=== PATIENT | male | born 1940 | race Caucasian/White ===

== ENCOUNTER 2019-04-06 19:18 | Emergency (ER) | payer OTHER ==
[2019-04-06 19:30] VITALS: BP 166/94; PULSE 87; TEMP 98.1; BMI 22.4
--- NOTE | 2019-04-06 19:55 | PDOC ---
History of Present Illness - General Chief Complaint: Hematuria Stated Complaint: BLOOD IN URINE Time Seen by Provider: 04/06/19 19:54 History Source: Patient, Family, Pt declined Bone Char Operator Exam Limitations: Language Barrier - History of Present Illness Initial Comments: History obtained from Son, pt and Son declined interpreter for the deaf. 79-year-old male with past medical history of BPH, hypertension, atrial fibrillation on Eliquis, CABG, presented to the emergency department for painless hematuria beginning today. Patient reported he was recently started on a new medicine by his urologist Dr. Peters, he and his son do not remember the name of the medication. They reported the patient took the first pill at 10 AM and the second pill around 3 PM, and in between that the patient developed painless hematuria. Patient denied fever, abdominal pain, back pain, flank pain , lightheadedness, generalized weakness, nausea, vomiting, diarrhea. Patient reported he has had burning with urination for the last year. ROS General: denied fever, chills, generalized weakness. HEENT: denied sore throat, rhinorrhea, ear pain. Cardiovascular: denied chest pain, palpitations, syncope, diaphoresis. Respiratory: denied shortness of breath, cough, sputum production, hemoptysis. Gastrointestinal: denied abdominal pain, nausea, vomiting, diarrhea, constipation, blood in stool. Genitourinary: admitted to dysuria, hematuria. denied increased urinary frequency, urinary incontinence, flank pain. Back: denied back pain. Musculoskeletal: denied joint pain, muscle pain, joint swelling. Neurological: denied headache, dizziness, numbness, tingling, weakness. Integumentary: denied rash, laceration, abrasion. Hematologic/Lymphatic: denied bruising or bleeding. PE Constitutional: Well-nourished, Well-developed, appearing stated age. HEENT: head is normocephalic, atraumatic. EOMI. PERRLA. Neck: supple. Full ROM. Cardiovascular: regular heart rhythm. no murmurs. no pericardial friction rub. Respiratory: clear to auscultation bilaterally. no crackles, rhonchi or wheezing. no stridor. Gastrointestinal: soft, nontender. normal bowel sounds. no rebound, guarding, masses. Back: negative CVA tenderness bilaterally. Extremities: peripheral pulses intact. no lower extremity edema. Neurological: CN 2-12 grossly intact. moves all four extremities. Psych: awake, alert, oriented x3. follows commands. answers questions appropriately. Past History - Past Medical History Allergies/Adverse Reactions: Allergies Allergy/AdvReac Type Severity Reaction Status Date / Time No Known Allergies Allergy Verified 04/06/19 19:30 Home Medications: Ambulatory Orders Amlodipine Besylate [Norvasc -] 5 mg PO DAILY #30 tablet 04/02/13 Digoxin [Lanoxin -] 0.125 mg PO DAILY 04/02/13 Nadolol [Corgard] 80 mg PO DAILY 04/02/13 Warfarin Sodium [Coumadin] 2.5 mg PO DAILY 04/02/13 Oxycodone HCl/Acetaminophen [Percocet 5-325 mg Tablet] 1 - 2 tab PO Q6H #20 tablet 12/18/13 - Psycho Social/Smoking Cessation Hx Smoking History: Never smoked Substance Use Type: None *Physical Exam - Vital Signs Last Vital Signs Temp Pulse Resp BP Pulse Ox 98.1 F 87 18 166/94 98 04/06/19 19:25 04/06/19 19:25 04/06/19 19:25 04/06/19 19:25 04/06/19 19:25 ED Treatment Course - LABORATORY CBC & Chemistry Diagram: 04/06/19 20:23 04/06/19 20:23 Medical Decision Making - Medical Decision Making 79 year old male with above PMH presented to ED for painless hematuria beginning today. Son will return home to get the medication the patient started taking today. Initial Vital Signs Temp Pulse Resp BP Pulse Ox 98.1 F 87 18 166/94 98 04/06/19 19:25 04/06/19 19:25 04/06/19 19:25 04/06/19 19:25 04/06/19 19:25 Afebrile. No tachycardia. No tachypnea. Hypertensive. No hypoxia on room air. Labs ordered: CBC, CMP, UA/UC, coags Imaging ordered: none Medications ordered: none 04/06/19 21:08 Laboratory Last Values PT with INR 16.20 SEC (9.7-13.0) H 04/06/19 20:23 INR 1.37 (0.83-1.09) H 04/06/19 20:23 PTT (Actin FS) 43.6 SECONDS (25.2-36.5) H 04/06/19 20:23 Mildly elevated coags, no supratherapeutic INR, pt is on Eliquis. Son returned to ED with prescription bottle for Pyridium, son and pt reassured that pyridium causes red/orange urine. 04/06/19 21:16 CMP Sodium 142 mmol/L (136-145) 04/06/19 20:23 Potassium 3.8 mmol/L (3.5-5.1) 04/06/19 20:23 Chloride 112 mmol/L (98-107) H 04/06/19 20:23 Carbon Dioxide 23 mmol/L (21-32) 04/06/19 20:23 Anion Gap 8 MMOL/L (8-16) 04/06/19 20:23 BUN 17.0 mg/dL (7-18) 04/06/19 20:23 Creatinine 1.0 mg/dL (0.55-1.3) 04/06/19 20:23 Est GFR (CKD-EPI)AfAm 83.77 04/06/19 20:23 Est GFR (CKD-EPI)NonAf 72.28 04/06/19 20:23 Random Glucose 71 mg/dL (74-106) L 04/06/19 20:23 Calcium 8.8 mg/dL (8.5-10.1) 04/06/19 20:23 Total Bilirubin 0.5 mg/dL (0.2-1) 04/06/19 20:23 AST 27 U/L (15-37) 04/06/19 20:23 ALT 37 U/L (13-61) 04/06/19 20:23 Alkaline Phosphatase 116 U/L (45-117) 04/06/19 20:23 Total Protein 7.5 g/dl (6.4-8.2) 04/06/19 20:23 Albumin 4.0 g/dl (3.4-5.0) 04/06/19 20:23 No clinically significant electrolyte abnormalities. No DAWSON. No transaminitis. 04/06/19 21:30 CBC WBC 6.5 K/mm3 (4.0-10.0) 04/06/19 20:23 RBC 4.16 M/mm3 (4.00-5.60) 04/06/19 20:23 Hgb 13.1 GM/dL (11.7-16.9) 04/06/19 20:23 Hct 39.2 % (35.4-49) 04/06/19 20: MCV 94.3 fl (80-96) 04/06/19 20: MCH 31.5 pg (25.7-33.7) 04/06/19 20: MCHC 33.4 g/dl (32.0-35.9) 04/06/19 20: RDW 14.7 % (11.9-15.9) 04/06/19: Plt Count 207 K/MM3 (134-434) D 04/06/19 20: MPV 8.0 fl (7.5-11.1) 04/06/19: Absolute Neuts (auto) 4.1 K/mm3 (1.5-8.0) 04/06/19: Neutrophils % 62.4 % (42.8-82.8) 04/06/19: Lymphocytes % 22.9 % (8-40) 04/06/19: Monocytes % 13.2 % (3.8-10.2) H 04/06/19: Eosinophils % 1.1 % (0-4.5) 04/06/19: Basophils % 0.4 % (0-2.0) 04/06/19: Nucleated RBC % 0 % (0-0) 04/06/19: No leukocytosis. No anemia. Pt and son requesting discharge prior to UA results. Will call if abnormal. Pt and son advised to continue pyridium. Pt discharged. 04/06/19 22:13 Urine Test Results Urine Color Dk yellow 04/06/19 21:00 Urine Appearance Clear 04/06/19 21:00 Urine pH 5.5 (5.0-8.0) 04/06/19 21:00 Ur Specific Mcdaniels 1.004 (1.010-1.035) L 04/06/19 21:00 Urine Protein Negative (NEGATIVE) 04/06/19 21:00 Urine Glucose (UA) Negative (NEGATIVE) 04/06/19 21:00 Urine Ketones Negative (NEGATIVE) 04/06/19 21:00 Urine Blood Negative (NEGATIVE) 04/06/19 21:00 Urine Nitrite Positive (NEGATIVE) H 04/06/19 21:00 Urine Bilirubin Negative (NEGATIVE) 04/06/19 21:00 Ur Leukocyte Esterase Negative (NEGATIVE) 04/06/19 21:00 WBC 0 Epithelial cells 0 Bacteria <1 No UTI. No hematuria. Discharge - Discharge Information Problems reviewed: Yes Clinical Impression/Diagnosis: Red-colored urine Condition: Stable Disposition: HOME - Admission No - Follow up/Referral Referrals: Dana Holder [Primary Care Provider] - Nunu Peters MD [Staff Physician] - - Patient Discharge Instructions Additional Instructions: Continue taking the medicatios prescribed to you. Red-Wilbarger urine is a side effect of Pyridium use. It is safe to continue taking it. Return to the Emergency Department for increasing pain, back pain, flank pain, fever, vomiting, abdominal pain, lightheadedness, chest pain, shortness of breath, or any other new, worsening or concerning symptoms. - Post Discharge Activity
[2019-04-06 20:49] LABS: BASO % 0.4 % (0-2.0); EOS % 1.1 % (0-4.5); HEMATOCRIT 39.2 % (35.4-49); HEMOGLOBIN 13.1 GM/dL (11.7-16.9); LYMPH % 22.9 % (8-40); MCH 31.5 pg (25.7-33.7); MCHC 33.4 g/dl (32.0-35.9); MEAN CELL VOLUME 94.3 fl (80-96); MONO % 13.2 % (3.8-10.2); NEUT % 62.4 % (42.8-82.8); PLATELET COUNT 207 K/MM3 (134-434); RBC 4.16 M/mm3 (4.00-5.60); RDW 14.7 % (11.9-15.9); WHITE BLOOD COUNT 6.5 K/mm3 (4.0-10.0)
[2019-04-06 21:02] LABS: INR 1.37 (0.83-1.09); PROTHROMBIN TIME (PATIENT) 16.2 SEC (9.7-13.0)
[2019-04-06 21:04] LABS: ACTIVATED PTT 43.6 SECONDS (25.2-36.5)
[2019-04-06 21:12] LABS: BILIRUBIN,TOTAL 0.5 mg/dL (0.2-1); CALCIUM 8.8 mg/dL (8.5-10.1); POTASSIUM 3.8 mmol/L (3.5-5.1); TOT PROT 7.5 g/dl (6.4-8.2)
--- NOTE | 2019-04-06 21:15 | PDOC ---
Attending Attestation - Resident Resident Name: Veronica Rizo - ED Attending Attestation I have performed the following: I have examined & evaluated the patient, The case was reviewed & discussed with the resident, I agree w/resident's findings & plan - HPI HPI: 04/06/19 21:31 Pt comes with orange urine and they are worried that this is hematuria, as he is on eliquis. However pt is on pyridoxine and as such has orange urine. No flank pain and no fever and no BRB in the urine. - Physicial Exam PE: 04/06/19 21:32 Pt has normal heart and lungs and abd soft NT ND Heart RRR no afib appreciated Pt has no flank pain and no midline spine tenderness Pt has pitting edema of the right leg >> left leg. - Medical Decision Making 04/06/19 21:14 Pt has an INR of 1.37; Pt has a chem that is normal BUN is not elevated CBC pending Vitals are stable. 04/07/19 22:55 Pt will be sent Bactrim DS BID x 7 days FOllow with PMD
[2019-04-06 21:28] LABS: INR 1.36 (0.83-1.09); PROTHROMBIN TIME (PATIENT) 16.1 SEC (9.7-13.0)
[2019-04-06 21:30] LABS: ACTIVATED PTT 44.1 SECONDS (25.2-36.5)
[2019-04-06 21:49] LABS: EPI CELLS 0 /HPF (0-5/HPF); HYALINE CASTS 0 /lpf (0-8); PH,URINE 5.5 (5.0-8.0); URINE APPEARANCE CLEAR; URINE BACTERIA 0.3 /hpf (NEGATIVE); URINE BILIRUBIN NEGATIVE (NEGATIVE); URINE COLOR DK YELLOW; URINE GLUCOSE (UA) NEGATIVE (NEGATIVE); URINE KETONE NEGATIVE (NEGATIVE); URINE LEUK ESTERASE NEGATIVE (NEGATIVE); URINE NITRITE POSITIVE (NEGATIVE); URINE PROTEIN NEGATIVE (NEGATIVE); URINE RBC 0 /hpf (0-4); URINE WBC 0 /hpf (0-5)
== END 2019-04-06 21:49 | disposition home or self-care (01) ==
LOC: JER 19:18
DX: R82.90 Unspecified abnormal findings in urine (principal); I25.10 Atherosclerotic heart disease of native coronary artery without angina pectoris; I10 Essential (primary) hypertension; Z95.1 Presence of aortocoronary bypass graft; I48.91 Unspecified atrial fibrillation; Z79.01 Long term (current) use of anticoagulants; N40.0 Benign prostatic hyperplasia without lower urinary tract symptoms
CPT/HCPCS: 36415; 80053; 81003; 85025; 85610; 85730; 87086; 99282-25

== ENCOUNTER 2021-05-28 08:10 | Inpatient (IN) | payer OTHER ==
[2021-05-28 08:26] VITALS: BMI 23.0
[2021-05-28] MEDS ORDERED: ACETAMINOPHEN 1000 MG/100 ML BAG IVPB ONE (08:53)
[2021-05-28] MEDS ORDERED: ACETAMINOPHEN INJECTION 100 ML IVPB ONE (09:34)
[2021-05-28 10:37] LABS: BASO % 0.4 % (0-2.0); EOS % 0.9 % (0-4.5); HEMATOCRIT 28.5 % (35.4-49); HEMOGLOBIN 9.5 GM/dL (11.7-16.9); LYMPH % 9.3 % (8-40); MCH 29.7 pg (25.7-33.7); MCHC 33.3 g/dl (32.0-35.9); MEAN CELL VOLUME 89.3 fl (80-96); MEAN PLT VOLUME 7.8 fl (7.5-11.1); MONO % 8.5 % (3.8-10.2); NEUT % 80.9 % (42.8-82.8); PLATELET COUNT 287 10^3/uL (134-434); RBC 3.19 M/mm3 (4.00-5.60); RDW 15.7 % (11.9-15.9); WHITE BLOOD COUNT 8.5 K/mm3 (4.0-10.0)
[2021-05-28] MEDS ORDERED: amLODIPine BESYLATE 10 MG TABLET (FP) PO ONE (10:40)
[2021-05-28 10:46] LABS: INR 1.38 (0.83-1.09); PROTHROMBIN TIME (PATIENT) 15.9 SEC (9.7-13.0)
[2021-05-28 10:49] LABS: ACTIVATED PTT 35.2 SECONDS (25.2-36.5)
[2021-05-28] MEDS ORDERED: LIDOCAINE HCL 2% JELLY 10 ML CARTRIDGE ONE (10:53)
[2021-05-28 10:59] LABS: CALCIUM 8.1 mg/dL (8.5-10.1)
[2021-05-28 11:00] LABS: ALBUMIN 3.3 g/dl (3.4-5.0)
[2021-05-28 11:03] LABS: CREATININE 1.1 mg/dL (0.55-1.3); URINE APPEARANCE Turbid; URINE BILIRUBIN Negative (NEGATIVE); URINE GLUCOSE (UA) Negative (NEGATIVE); URINE KETONE Negative (NEGATIVE); URINE LEUK ESTERASE Trace (NEGATIVE); URINE NITRITE Negative (NEGATIVE); URINE PROTEIN 3+ (NEGATIVE)
[2021-05-28 11:04] LABS: BILIRUBIN,TOTAL 1.3 mg/dL (0.2-1)
[2021-05-28 11:05] LABS: TOT PROT 6.9 g/dl (6.4-8.2)
[2021-05-28 11:24] LABS: URINE COLOR Red
[2021-05-28 11:32] LABS: URINE RBC >100 /uL (0-23.9)
[2021-05-28 11:33] LABS: EPI CELLS FEW /uL (0-25.1); HYALINE CASTS NONE SEEN /uL (0-3.1)
[2021-05-28 11:34] LABS: URINE BACTERIA FEW /uL (0-1359)
[2021-05-28] MEDS: ACETAMINOPHEN 500 MG TABLET (FP) PO PRN ×3 (15:47→21:23)
[2021-05-28] MEDS ORDERED: cefTRIAXone SODIUM 1 GM VIAL ONE (16:12)
[2021-05-28] MEDS ORDERED: DEXTROSE 5%-WATER - 50 ML IVPB ONE (16:12)
[2021-05-28] MEDS: CEFTRIAXONE 1 GM in DEXTROSE 5%-WATER - 50 ML IVPB SCH (16:15)
[2021-05-28] MEDS: DEXTROSE 5%-0.45% SALINE 1,000 ML IV SCH (16:21)
[2021-05-29] MEDS: DEXTROSE 5%-0.45% SALINE 1,000 ML IV SCH ×2 (08:34→16:33)
[2021-05-29] MEDS ORDERED: cefTRIAXone SODIUM 1 GM VIAL ONE (09:44)
[2021-05-29] MEDS ORDERED: DEXTROSE 5%-WATER - 50 ML IVPB ONE ×3 (09:44→17:09)
[2021-05-29] MEDS ORDERED: NADOLOL 40 MG TABLET (FP) PO SCH (10:00)
[2021-05-29] MEDS: DIGOXIN 0.125 MG TABLET PO SCH (10:15)
[2021-05-29 10:25] LABS: BASO % 0.5 % (0-2.0); EOS % 0.6 % (0-4.5); HEMATOCRIT 25.1 % (35.4-49); HEMOGLOBIN 8.2 GM/dL (11.7-16.9); LYMPH % 4.3 % (8-40); MCH 29.5 pg (25.7-33.7); MCHC 32.7 g/dl (32.0-35.9); MEAN CELL VOLUME 90.2 fl (80-96); MONO % 6.7 % (3.8-10.2); NEUT % 87.9 % (42.8-82.8); PLATELET COUNT 273 10^3/uL (134-434); RBC 2.79 M/mm3 (4.00-5.60); RDW 16.1 % (11.9-15.9); WHITE BLOOD COUNT 14.5 K/mm3 (4.0-10.0)
[2021-05-29] MEDS: CEFTRIAXONE 1 GM in DEXTROSE 5%-WATER - 50 ML IVPB SCH (10:32)
[2021-05-29] MEDS: amLODIPine BESYLATE 5 MG TABLET (FP) PO SCH (10:32)
[2021-05-29 10:41] LABS: BLOOD UREA NITROGEN 13.6 mg/dL (7-18); CALCIUM 7.7 mg/dL (8.5-10.1)
[2021-05-29 10:44] LABS: CREATININE 1.1 mg/dL (0.55-1.3)
[2021-05-29 10:46] LABS: BILIRUBIN,TOTAL 1.6 mg/dL (0.2-1); TOT PROT 5.7 g/dl (6.4-8.2)
[2021-05-29 10:49] LABS: ALBUMIN 2.6 g/dl (3.4-5.0)
[2021-05-29] MEDS: PANTOPRAZOLE 40 MG TABLET PO SCH (11:08)
[2021-05-29] MEDS: TAMSULOSIN HCL 0.4 MG CAP PO SCH ×2 (11:08→21:03)
[2021-05-29] MEDS: KCL 10 MEQ IVPB 10 MEQ/100 ML INFUS.BAG IVPB SCH ×3 (11:54→16:33)
[2021-05-29] MEDS ORDERED: PIPERACILLIN/TAZOBACTAM 3.375 GM VIAL IVPB ONE ×2 (13:36→17:09)
[2021-05-29] MEDS: PIPERACILLIN/TAZOB 3.375 GM 3.375 GM in DEXTROSE 5%-WATER - 50 ML IVPB SCH ×2 (13:46→18:40)
[2021-05-29] MEDS: ACETAMINOPHEN 500 MG TABLET (FP) PO PRN ×2 (14:07→23:55)
[2021-05-29] MEDS ORDERED: POTASSIUM CHLORIDE ORAL LIQUID 20 MEQ/15 ML PO ONE (16:38)
[2021-05-29] MEDS ORDERED: POTASSIUM CHLORIDE TABS 10 MEQ TABLET.ER (FP) PO ONE (18:15)
[2021-05-29] MEDS: SODIUM CHLORIDE 0.45%/POT 20 MEQ/1,000 ML INFUS.BAG IV SCH (18:45)
[2021-05-29] MEDS: LUBIPROSTONE 24 MCG PO SCH (22:06)
[2021-05-29] MEDS ORDERED: ONDANSETRON 4 MG/2 ML VIAL IVPUSH PRN (22:48)
[2021-05-30] MEDS ORDERED: PIPERACILLIN/TAZOBACTAM 3.375 GM VIAL IVPB ONE ×3 (01:14→17:19)
[2021-05-30] MEDS ORDERED: DEXTROSE 5%-WATER - 50 ML IVPB ONE ×3 (01:14→17:19)
[2021-05-30] MEDS: PIPERACILLIN/TAZOB 3.375 GM 3.375 GM in DEXTROSE 5%-WATER - 50 ML IVPB SCH ×3 (02:11→17:35)
[2021-05-30 09:08] LABS: BASO % 0.3 % (0-2.0); EOS % 0.6 % (0-4.5); HEMATOCRIT 26.7 % (35.4-49); HEMOGLOBIN 8.5 GM/dL (11.7-16.9); LYMPH % 6.7 % (8-40); MCHC 31.8 g/dl (32.0-35.9); MEAN PLT VOLUME 7.7 fl (7.5-11.1); MONO % 7.9 % (3.8-10.2); NEUT % 84.5 % (42.8-82.8); PLATELET COUNT 294 10^3/uL (134-434); RBC 2.93 M/mm3 (4.00-5.60); RDW 16.4 % (11.9-15.9); WHITE BLOOD COUNT 16.3 K/mm3 (4.0-10.0)
[2021-05-30] MEDS: DIGOXIN 0.125 MG TABLET PO SCH (09:31)
[2021-05-30] MEDS: FINASTERIDE 5 MG TABLET (FP) PO SCH (09:31)
[2021-05-30] MEDS: PANTOPRAZOLE 40 MG TABLET PO SCH (09:32)
[2021-05-30] MEDS: amLODIPine BESYLATE 5 MG TABLET (FP) PO SCH (09:32)
[2021-05-30] MEDS: TAMSULOSIN HCL 0.4 MG CAP PO SCH ×2 (09:32→21:02)
[2021-05-30] MEDS: LUBIPROSTONE 24 MCG PO SCH ×2 (10:00→21:02)
[2021-05-30 10:35] LABS: CALCIUM 8.3 mg/dL (8.5-10.1)
[2021-05-30 10:36] LABS: ALBUMIN 2.6 g/dl (3.4-5.0); BLOOD UREA NITROGEN 14.2 mg/dL (7-18); MAGNESIUM 2.1 mg/dL (1.8-2.4)
[2021-05-30 10:40] LABS: BILIRUBIN,TOTAL 1.4 mg/dL (0.2-1); TOT PROT 5.9 g/dl (6.4-8.2)
[2021-05-30] MEDS: SODIUM CHLORIDE 0.45%/POT 20 MEQ/1,000 ML INFUS.BAG IV SCH (17:34)
[2021-05-31] MEDS ORDERED: PIPERACILLIN/TAZOBACTAM 3.375 GM VIAL IVPB ONE ×3 (00:29→17:27)
[2021-05-31] MEDS ORDERED: DEXTROSE 5%-WATER - 50 ML IVPB ONE ×3 (00:29→17:27)
[2021-05-31] MEDS: PIPERACILLIN/TAZOB 3.375 GM 3.375 GM in DEXTROSE 5%-WATER - 50 ML IVPB SCH ×3 (01:03→17:40)
[2021-05-31] MEDS: FINASTERIDE 5 MG TABLET (FP) PO SCH (09:18)
[2021-05-31] MEDS: TAMSULOSIN HCL 0.4 MG CAP PO SCH ×2 (09:19→21:49)
[2021-05-31] MEDS: PANTOPRAZOLE 40 MG TABLET PO SCH (09:19)
[2021-05-31] MEDS: amLODIPine BESYLATE 5 MG TABLET (FP) PO SCH (09:25)
[2021-05-31] MEDS: LUBIPROSTONE 24 MCG PO SCH ×2 (09:27→21:49)
[2021-05-31 09:29] LABS: BASO % 0.4 % (0-2.0); EOS % 1.6 % (0-4.5); HEMATOCRIT 25.7 % (35.4-49); HEMOGLOBIN 8.2 GM/dL (11.7-16.9); LYMPH % 9.6 % (8-40); MCH 29.3 pg (25.7-33.7); MCHC 32.1 g/dl (32.0-35.9); MEAN CELL VOLUME 91.4 fl (80-96); MEAN PLT VOLUME 8.6 fl (7.5-11.1); MONO % 7.9 % (3.8-10.2); NEUT % 80.5 % (42.8-82.8); PLATELET COUNT 325 10^3/uL (134-434); RBC 2.81 M/mm3 (4.00-5.60); RDW 16.2 % (11.9-15.9)
[2021-05-31 09:49] LABS: ALBUMIN 2.4 g/dl (3.4-5.0); CALCIUM 8.2 mg/dL (8.5-10.1)
[2021-05-31 09:53] LABS: CREATININE 1.1 mg/dL (0.55-1.3)
[2021-05-31 09:54] LABS: BILIRUBIN,TOTAL 1.8 mg/dL (0.2-1); TOT PROT 5.9 g/dl (6.4-8.2)
[2021-05-31] MEDS: DIGOXIN 0.125 MG TABLET PO SCH (13:11)
[2021-05-31] MEDS: SODIUM CHLORIDE 0.45%/POT 20 MEQ/1,000 ML INFUS.BAG IV SCH (17:39)
[2021-05-31] MEDS: ACETAMINOPHEN 500 MG TABLET (FP) PO PRN (21:49)
[2021-06-01] MEDS ORDERED: PIPERACILLIN/TAZOBACTAM 3.375 GM VIAL IVPB ONE ×2 (00:52→09:25)
[2021-06-01] MEDS ORDERED: DEXTROSE 5%-WATER - 50 ML IVPB ONE ×2 (00:52→09:25)
[2021-06-01] MEDS: PIPERACILLIN/TAZOB 3.375 GM 3.375 GM in DEXTROSE 5%-WATER - 50 ML IVPB SCH ×2 (01:58→09:36)
[2021-06-01 08:20] LABS: BASO % 0.8 % (0-2.0); EOS % 2.7 % (0-4.5); HEMATOCRIT 24.9 % (35.4-49); HEMOGLOBIN 8.3 GM/dL (11.7-16.9); MCH 29.7 pg (25.7-33.7); MCHC 33.3 g/dl (32.0-35.9); MEAN CELL VOLUME 89.3 fl (80-96); MEAN PLT VOLUME 7.4 fl (7.5-11.1); MONO % 10.1 % (3.8-10.2); NEUT % 72.4 % (42.8-82.8); PLATELET COUNT 380 10^3/uL (134-434); RBC 2.79 M/mm3 (4.00-5.60); WHITE BLOOD COUNT 7.6 K/mm3 (4.0-10.0)
[2021-06-01 08:33] LABS: CALCIUM 7.8 mg/dL (8.5-10.1)
[2021-06-01 08:35] LABS: ALBUMIN 2.4 g/dl (3.4-5.0)
[2021-06-01 08:36] LABS: BLOOD UREA NITROGEN 9.8 mg/dL (7-18)
[2021-06-01 08:37] LABS: CREATININE 0.9 mg/dL (0.55-1.3)
[2021-06-01 08:39] LABS: TOT PROT 5.7 g/dl (6.4-8.2)
[2021-06-01] MEDS: FINASTERIDE 5 MG TABLET (FP) PO SCH (09:43)
[2021-06-01] MEDS: TAMSULOSIN HCL 0.4 MG CAP PO SCH (09:43)
[2021-06-01] MEDS: amLODIPine BESYLATE 5 MG TABLET (FP) PO SCH (09:43)
[2021-06-01] MEDS: PANTOPRAZOLE 40 MG TABLET PO SCH (09:43)
[2021-06-01] MEDS: LUBIPROSTONE 24 MCG PO SCH (09:44)
[2021-06-01] MEDS: DIGOXIN 0.125 MG TABLET PO SCH (09:44)
[2021-06-01] MEDS ORDERED: APIXABAN 5 MG TABLET PO SCH (10:30)
[2021-06-01 16:00] VITALS: BP 101/61; PULSE 98; TEMP 98.5
== END 2021-06-01 17:21 | disposition home or self-care (01) | DRG 699 ==
LOC: JER 08:10 → JERBED 13:17 → J7W 14:52
PROVIDERS: ADMIT Internal Medicine; ATTEND Internal Medicine
DX: N99.89 Other postprocedural complications and disorders of genitourinary system (principal); N39.0 Urinary tract infection, site not specified; Y83.8 Other surgical procedures as the cause of abnormal reaction of the patient, or of later complication, without mention of misadventure at the time of the procedure; E87.6 Hypokalemia; I48.91 Unspecified atrial fibrillation; R31.0 Gross hematuria; D72.829 Elevated white blood cell count, unspecified; I10 Essential (primary) hypertension; E78.00 Pure hypercholesterolemia, unspecified; N40.0 Benign prostatic hyperplasia without lower urinary tract symptoms; K59.00 Constipation, unspecified; B96.5 Pseudomonas (aeruginosa) (mallei) (pseudomallei) as the cause of diseases classified elsewhere
CPT/HCPCS: 36415; 80053; 81003; 83735; 84484; 85025; 85610; 85730; 86850; 86900; 86901; 87040; 87086; 87186; 93005; 93010; 97116-GP; 97162-GP; 99285-25; C9803; J3480; U0003; U0005

== ENCOUNTER 2021-06-12 13:14 | Inpatient (IN) | payer OTHER ==
[2021-06-12] MEDS ORDERED: SODIUM CHLORIDE 0.9% 500 ML INFUS.BAG IV ONE (14:24)
[2021-06-12] MEDS ORDERED: ACETAMINOPHEN 1000 MG/100 ML BAG IVPB ONE (14:29)
[2021-06-12 14:33] LABS: EPI CELLS 2 /uL (0-25.1); HYALINE CASTS 2 /uL (0-3.1); PH,URINE 5.5 (5.0-8.0); URINE APPEARANCE CLOUDY; URINE BACTERIA 24 /uL (0-1359); URINE BILIRUBIN NEGATIVE (NEGATIVE); URINE COLOR RED; URINE GLUCOSE (UA) NEGATIVE (NEGATIVE); URINE KETONE NEGATIVE (NEGATIVE); URINE LEUK ESTERASE 3+ (NEGATIVE); URINE NITRITE NEGATIVE (NEGATIVE); URINE PROTEIN 2+ (NEGATIVE); URINE UROBILINOGEN 0.2 mg/dL (0.2-1.0); URINE WBC 1436 /uL (0-25.8)
[2021-06-12 14:45] LABS: URINE RBC 244.8 /uL (0-23.9); YEAST NON SEEN (NEGATIVE)
[2021-06-12 14:48] LABS: BASO % 0.6 % (0-2.0); HEMATOCRIT 28.5 % (35.4-49); HEMOGLOBIN 9.3 GM/dL (11.7-16.9); LYMPH % 9.6 % (8-40); MCH 28.6 pg (25.7-33.7); MCHC 32.5 g/dl (32.0-35.9); MEAN CELL VOLUME 88.2 fl (80-96); MEAN PLT VOLUME 7.5 fl (7.5-11.1); MONO % 11.7 % (3.8-10.2); NEUT % 77.1 % (42.8-82.8); PLATELET COUNT 397 10^3/uL (134-434); RBC 3.23 M/mm3 (4.00-5.60); WHITE BLOOD COUNT 8.2 K/mm3 (4.0-10.0)
[2021-06-12] MEDS ORDERED: ACETAMINOPHEN INJECTION 100 ML IVPB ONE (14:50)
[2021-06-12 15:00] LABS: INR 1.32 (0.83-1.09); PROTHROMBIN TIME (PATIENT) 15.2 SEC (9.7-13.0)
[2021-06-12 15:03] LABS: ACTIVATED PTT 33.9 SECONDS (25.2-36.5)
[2021-06-12 15:15] LABS: CALCIUM 8.6 mg/dL (8.5-10.1)
[2021-06-12 15:17] LABS: BLOOD UREA NITROGEN 13.1 mg/dL (7-18)
[2021-06-12 15:19] LABS: CREATININE 1.1 mg/dL (0.55-1.3)
[2021-06-12 15:21] LABS: BILIRUBIN,TOTAL 0.8 mg/dL (0.2-1)
[2021-06-12] MEDS ORDERED: VANCOMYCIN 1 GM in D5W (PRE-DOCKED) 1,000 MG/250 ML IVPB ONE (15:21)
[2021-06-12] MEDS ORDERED: PIPERACILLIN/TAZOB 3.375 GM 3.375 GM in DEXTROSE 5%-WATER - 50 ML IVPB ONE (15:21)
[2021-06-12 15:22] LABS: TOT PROT 6.9 g/dl (6.4-8.2)
[2021-06-12 15:29] LABS: ALBUMIN 3.2 g/dl (3.4-5.0)
[2021-06-12] MEDS ORDERED: PIPERACILLIN/TAZOB 3.375 GM 3.375 GM/50 ML BAG IVPB ONE (15:40)
[2021-06-12] MEDS ORDERED: VANCOMYCIN 1 GRAM (PRE-DOCKED) 1,000 MG/250 ML BAG IVPB ONE (15:40)
[2021-06-13] MEDS ORDERED: DEXTROSE 5%-WATER - 50 ML IVPB ONE ×3 (00:47→16:57)
[2021-06-13] MEDS ORDERED: PIPERACILLIN/TAZOBACTAM 3.375 GM VIAL IVPB ONE ×3 (00:47→16:56)
[2021-06-13] MEDS: DEXTROSE 5%-0.45% SALINE 1,000 ML IV SCH (01:16)
[2021-06-13] MEDS: PIPERACILLIN/TAZOB 3.375 GM 3.375 GM in DEXTROSE 5%-WATER - 50 ML IVPB SCH ×3 (01:20→17:08)
[2021-06-13] MEDS: ACETAMINOPHEN 325 MG TABLET (FP) PO PRN (03:43)
[2021-06-13] MEDS: TAMSULOSIN HCL 0.4 MG CAP PO SCH ×2 (09:17→21:18)
[2021-06-13] MEDS: FERROUS SO4 325 MG TABLET (FP) PO SCH (09:17)
[2021-06-13] MEDS: PANTOPRAZOLE 40 MG TABLET PO SCH (09:17)
[2021-06-13] MEDS: POLYETHYLENE GLYCOL (HEALTHYLAX) 3350 17 GM PACKET PO SCH ×2 (09:17→11:23)
[2021-06-13 10:01] LABS: BASO % 0.6 % (0-2.0); EOS % 2.1 % (0-4.5); HEMATOCRIT 27.7 % (35.4-49); HEMOGLOBIN 9.1 GM/dL (11.7-16.9); LYMPH % 11.9 % (8-40); MCH 28.9 pg (25.7-33.7); MCHC 32.9 g/dl (32.0-35.9); MEAN CELL VOLUME 87.9 fl (80-96); MEAN PLT VOLUME 7.3 fl (7.5-11.1); MONO % 11.2 % (3.8-10.2); NEUT % 74.2 % (42.8-82.8); PLATELET COUNT 347 10^3/uL (134-434); RBC 3.16 M/mm3 (4.00-5.60); RDW 16.5 % (11.9-15.9); WHITE BLOOD COUNT 7.4 K/mm3 (4.0-10.0)
[2021-06-13 10:24] LABS: CALCIUM 8.3 mg/dL (8.5-10.1)
[2021-06-13 10:28] LABS: CREATININE 1.1 mg/dL (0.55-1.3)
[2021-06-13 10:30] LABS: BILIRUBIN,TOTAL 0.9 mg/dL (0.2-1); TOT PROT 6.5 g/dl (6.4-8.2)
[2021-06-13] MEDS: LIDOCAINE HCL 2% JELLY (30 ML/TUBE) TP SCH ×2 (16:46→21:22)
[2021-06-13] MEDS: OXYBUTYNIN CHLORIDE 5 MG TABLET PO SCH (21:19)
[2021-06-13] MEDS: DOCUSATE SODIUM 100 MG CAPSULE (FP) PO SCH (21:19)
[2021-06-13] MEDS: MELATONIN 5 MG TABLETS PO PRN (21:19)
[2021-06-13] MEDS: CYPROHEPTADINE HCL 4 MG TABLET PO SCH (21:53)
[2021-06-14] MEDS ORDERED: PIPERACILLIN/TAZOB 3.375 GM 3.375 GM in DEXTROSE 5%-WATER - 50 ML IVPB SCH (02:00)
[2021-06-14] MEDS ORDERED: PIPERACILLIN/TAZOBACTAM 3.375 GM VIAL IVPB ONE ×3 (02:28→17:58)
[2021-06-14] MEDS ORDERED: DEXTROSE 5%-WATER - 50 ML IVPB ONE ×3 (02:29→17:58)
[2021-06-14] MEDS: DEXTROSE 5%-0.45% SALINE 1,000 ML IV SCH (05:43)
[2021-06-14 08:41] LABS: BASO % 1.1 % (0-2.0); EOS % 4.1 % (0-4.5); HEMATOCRIT 26.8 % (35.4-49); HEMOGLOBIN 8.8 GM/dL (11.7-16.9); LYMPH % 18.6 % (8-40); MCH 29.1 pg (25.7-33.7); MCHC 32.9 g/dl (32.0-35.9); MEAN CELL VOLUME 88.2 fl (80-96); MEAN PLT VOLUME 7.2 fl (7.5-11.1); MONO % 10.9 % (3.8-10.2); NEUT % 65.3 % (42.8-82.8); PLATELET COUNT 302 10^3/uL (134-434); RBC 3.04 M/mm3 (4.00-5.60); WHITE BLOOD COUNT 5.6 K/mm3 (4.0-10.0)
[2021-06-14 09:03] LABS: BLOOD UREA NITROGEN 8.3 mg/dL (7-18); CALCIUM 8.6 mg/dL (8.5-10.1)
[2021-06-14 09:04] LABS: ALBUMIN 2.7 g/dl (3.4-5.0)
[2021-06-14 09:07] LABS: CREATININE 1.2 mg/dL (0.55-1.3)
[2021-06-14 09:08] LABS: BILIRUBIN,TOTAL 0.8 mg/dL (0.2-1)
[2021-06-14] MEDS: TAMSULOSIN HCL 0.4 MG CAP PO SCH ×2 (09:38→21:12)
[2021-06-14] MEDS: POLYETHYLENE GLYCOL (HEALTHYLAX) 3350 17 GM PACKET PO SCH (09:39)
[2021-06-14] MEDS: PANTOPRAZOLE 40 MG TABLET PO SCH (09:39)
[2021-06-14] MEDS: OXYBUTYNIN CHLORIDE 5 MG TABLET PO SCH ×2 (09:39→21:12)
[2021-06-14] MEDS: LIDOCAINE HCL 2% JELLY (30 ML/TUBE) TP SCH ×2 (09:39→23:11)
[2021-06-14] MEDS: FERROUS SO4 325 MG TABLET (FP) PO SCH (09:39)
[2021-06-14] MEDS ORDERED: PIPERACILLIN/TAZOB 3.375 GM 3.375 GM in DEXTROSE 5%-WATER - 50 ML IVPB ONE (12:30)
[2021-06-14] MEDS: PIPERACILLIN/TAZOB 3.375 GM 3.375 GM in DEXTROSE 5%-WATER - 50 ML IVPB SCH (18:05)
[2021-06-14] MEDS: DOCUSATE SODIUM 100 MG CAPSULE (FP) PO SCH (21:12)
[2021-06-14] MEDS: MELATONIN 5 MG TABLETS PO PRN (21:12)
[2021-06-14] MEDS: CYPROHEPTADINE HCL 4 MG TABLET PO SCH (21:13)
[2021-06-15] MEDS ORDERED: DEXTROSE 5%-WATER - 50 ML IVPB ONE ×3 (00:29→17:16)
[2021-06-15] MEDS ORDERED: PIPERACILLIN/TAZOBACTAM 3.375 GM VIAL IVPB ONE ×3 (00:29→17:16)
[2021-06-15] MEDS: DEXTROSE 5%-0.45% SALINE 1,000 ML IV SCH ×2 (01:23→08:50)
[2021-06-15] MEDS: PIPERACILLIN/TAZOB 3.375 GM 3.375 GM in DEXTROSE 5%-WATER - 50 ML IVPB SCH ×3 (01:24→17:33)
[2021-06-15] MEDS: LIDOCAINE HCL 2% JELLY (30 ML/TUBE) TP SCH ×2 (10:25→21:30)
[2021-06-15] MEDS: TAMSULOSIN HCL 0.4 MG CAP PO SCH ×2 (10:27→21:29)
[2021-06-15] MEDS: FERROUS SO4 325 MG TABLET (FP) PO SCH (10:27)
[2021-06-15] MEDS: PANTOPRAZOLE 40 MG TABLET PO SCH (10:27)
[2021-06-15] MEDS: OXYBUTYNIN CHLORIDE 5 MG TABLET PO SCH ×2 (10:28→21:30)
[2021-06-15 11:20] LABS: BASO % 0.8 % (0-2.0); HEMATOCRIT 29.7 % (35.4-49); HEMOGLOBIN 9.5 GM/dL (11.7-16.9); LYMPH % 14.9 % (8-40); MCH 28.3 pg (25.7-33.7); MCHC 32.1 g/dl (32.0-35.9); MEAN PLT VOLUME 7.9 fl (7.5-11.1); MONO % 8.5 % (3.8-10.2); NEUT % 71.8 % (42.8-82.8); PLATELET COUNT 347 10^3/uL (134-434); RBC 3.38 M/mm3 (4.00-5.60); RDW 16.7 % (11.9-15.9); WHITE BLOOD COUNT 6.2 K/mm3 (4.0-10.0)
[2021-06-15 11:28] LABS: BLOOD UREA NITROGEN 8.8 mg/dL (7-18); CALCIUM 8.7 mg/dL (8.5-10.1)
[2021-06-15 11:31] LABS: CREATININE 1.2 mg/dL (0.55-1.3)
[2021-06-15 11:33] LABS: BILIRUBIN,TOTAL 0.8 mg/dL (0.2-1); TOT PROT 6.7 g/dl (6.4-8.2)
[2021-06-15] MEDS: POLYETHYLENE GLYCOL (HEALTHYLAX) 3350 17 GM PACKET PO SCH (14:49)
[2021-06-15] MEDS ORDERED: SODIUM PHOSPHATE/NA BIPHOS 133 ML ENEMA PR ONE (14:54)
[2021-06-15 16:12] VITALS: BMI 21.2
[2021-06-15] MEDS: DOCUSATE SODIUM 100 MG CAPSULE (FP) PO SCH ×2 (21:29→21:37)
[2021-06-15] MEDS: CYPROHEPTADINE HCL 4 MG TABLET PO SCH (21:30)
[2021-06-15] MEDS: MELATONIN 5 MG TABLETS PO PRN (21:30)
[2021-06-15] MEDS ORDERED: IRON SUCROSE INJECTION 100 MG in SODIUM CHLORIDE 95 ML IVPB ONE (22:00)
[2021-06-16] MEDS ORDERED: PIPERACILLIN/TAZOBACTAM 3.375 GM VIAL IVPB ONE ×3 (01:16→17:20)
[2021-06-16] MEDS ORDERED: DEXTROSE 5%-WATER - 50 ML IVPB ONE ×3 (01:16→17:21)
[2021-06-16] MEDS: PIPERACILLIN/TAZOB 3.375 GM 3.375 GM in DEXTROSE 5%-WATER - 50 ML IVPB SCH ×3 (01:27→17:41)
[2021-06-16] MEDS: TAMSULOSIN HCL 0.4 MG CAP PO SCH ×2 (08:53→21:56)
[2021-06-16] MEDS ORDERED: FERRIC CARBOXYMALTOSE 750 MG in SODIUM CHLORIDE 250 ML IVPB ONE (10:00)
[2021-06-16 10:23] LABS: HEMATOCRIT 28.2 % (35.4-49); HEMOGLOBIN 9.2 GM/dL (11.7-16.9); MCH 28.8 pg (25.7-33.7); MCHC 32.7 g/dl (32.0-35.9); MEAN CELL VOLUME 87.9 fl (80-96); MEAN PLT VOLUME 7.6 fl (7.5-11.1); PLATELET COUNT 293 10^3/uL (134-434); RBC 3.21 M/mm3 (4.00-5.60); RDW 16.8 % (11.9-15.9); WHITE BLOOD COUNT 4.9 K/mm3 (4.0-10.0)
[2021-06-16] MEDS: POLYETHYLENE GLYCOL (HEALTHYLAX) 3350 17 GM PACKET PO SCH (10:29)
[2021-06-16] MEDS: PANTOPRAZOLE 40 MG TABLET PO SCH (10:34)
[2021-06-16] MEDS: OXYBUTYNIN CHLORIDE 5 MG TABLET PO SCH ×2 (10:34→21:55)
[2021-06-16] MEDS: LIDOCAINE HCL 2% JELLY (30 ML/TUBE) TP SCH ×2 (10:34→21:56)
[2021-06-16 10:43] LABS: CALCIUM 8.4 mg/dL (8.5-10.1)
[2021-06-16 10:44] LABS: ALBUMIN 2.9 g/dl (3.4-5.0); BLOOD UREA NITROGEN 11.1 mg/dL (7-18)
[2021-06-16 10:47] LABS: CREATININE 1.2 mg/dL (0.55-1.3)
[2021-06-16 10:48] LABS: BILIRUBIN,TOTAL 0.6 mg/dL (0.2-1); TOT PROT 6.3 g/dl (6.4-8.2)
[2021-06-16] MEDS: ACETAMINOPHEN 325 MG TABLET (FP) PO PRN (17:42)
[2021-06-16] MEDS: DOCUSATE SODIUM 100 MG CAPSULE (FP) PO SCH (21:54)
[2021-06-16] MEDS: CYPROHEPTADINE HCL 4 MG TABLET PO SCH (21:55)
[2021-06-16] MEDS: MELATONIN 5 MG TABLETS PO PRN (21:56)
[2021-06-17] MEDS ORDERED: PIPERACILLIN/TAZOBACTAM 3.375 GM VIAL IVPB ONE ×3 (01:01→17:06)
[2021-06-17] MEDS ORDERED: DEXTROSE 5%-WATER - 50 ML IVPB ONE ×3 (01:02→17:06)
[2021-06-17] MEDS: PIPERACILLIN/TAZOB 3.375 GM 3.375 GM in DEXTROSE 5%-WATER - 50 ML IVPB SCH ×3 (01:05→17:15)
[2021-06-17] MEDS: PANTOPRAZOLE 40 MG TABLET PO SCH (09:26)
[2021-06-17] MEDS: POLYETHYLENE GLYCOL (HEALTHYLAX) 3350 17 GM PACKET PO SCH ×2 (09:27→15:14)
[2021-06-17] MEDS: LIDOCAINE HCL 2% JELLY (30 ML/TUBE) TP SCH ×2 (09:27→22:05)
[2021-06-17] MEDS: TAMSULOSIN HCL 0.4 MG CAP PO SCH ×2 (09:27→21:58)
[2021-06-17] MEDS: OXYBUTYNIN CHLORIDE 5 MG TABLET PO SCH ×3 (09:27→22:07)
[2021-06-17] MEDS ORDERED: BISACODYL 5 MG TABLET.DR (FP) PO ONE (16:58)
[2021-06-17] MEDS: LIPASE/PROTEASE/AMYLASE 36,000 UNIT CAPSULE PO SCH (17:55)
[2021-06-17] MEDS: CYPROHEPTADINE HCL 4 MG TABLET PO SCH ×2 (21:58→22:06)
[2021-06-17] MEDS: MELATONIN 5 MG TABLETS PO PRN (21:58)
[2021-06-17] MEDS: APIXABAN 5 MG TABLET PO SCH ×2 (21:58→22:06)
[2021-06-18] MEDS ORDERED: DEXTROSE 5%-WATER - 50 ML IVPB ONE ×3 (00:40→16:59)
[2021-06-18] MEDS ORDERED: PIPERACILLIN/TAZOBACTAM 3.375 GM VIAL IVPB ONE ×3 (00:40→16:59)
[2021-06-18] MEDS: PIPERACILLIN/TAZOB 3.375 GM 3.375 GM in DEXTROSE 5%-WATER - 50 ML IVPB SCH ×3 (01:24→17:05)
[2021-06-18] MEDS: LIPASE/PROTEASE/AMYLASE 36,000 UNIT CAPSULE PO SCH ×4 (09:31→17:06)
[2021-06-18] MEDS: APIXABAN 5 MG TABLET PO SCH ×4 (09:31→21:13)
[2021-06-18] MEDS: OXYBUTYNIN CHLORIDE 5 MG TABLET PO SCH ×3 (09:31→21:27)
[2021-06-18] MEDS: PANTOPRAZOLE 40 MG TABLET PO SCH (09:31)
[2021-06-18] MEDS: TAMSULOSIN HCL 0.4 MG CAP PO SCH ×2 (09:31→21:12)
[2021-06-18] MEDS: LIDOCAINE HCL 2% JELLY (30 ML/TUBE) TP SCH ×2 (09:32→21:27)
[2021-06-18] MEDS: POLYETHYLENE GLYCOL (HEALTHYLAX) 3350 17 GM PACKET PO SCH (09:32)
[2021-06-18 10:52] LABS: EOS % 5.5 % (0-4.5); HEMATOCRIT 27.3 % (35.4-49); HEMOGLOBIN 8.9 GM/dL (11.7-16.9); LYMPH % 19.6 % (8-40); MCH 28.9 pg (25.7-33.7); MCHC 32.6 g/dl (32.0-35.9); MEAN CELL VOLUME 88.6 fl (80-96); MEAN PLT VOLUME 7.2 fl (7.5-11.1); MONO % 9.9 % (3.8-10.2); PLATELET COUNT 237 10^3/uL (134-434); RBC 3.08 M/mm3 (4.00-5.60); RDW 16.7 % (11.9-15.9); WHITE BLOOD COUNT 5.1 K/mm3 (4.0-10.0)
[2021-06-18 11:19] LABS: ALBUMIN 2.8 g/dl (3.4-5.0); BLOOD UREA NITROGEN 12.1 mg/dL (7-18)
[2021-06-18 11:22] LABS: CREATININE 1.3 mg/dL (0.55-1.3)
[2021-06-18 11:23] LABS: BILIRUBIN,TOTAL 0.6 mg/dL (0.2-1)
[2021-06-18 11:24] LABS: TOT PROT 6.2 g/dl (6.4-8.2)
[2021-06-18] MEDS ORDERED: FERRIC CARBOXYMALTOSE 750 MG in SODIUM CHLORIDE 250 ML IVPB ONE (15:00)
[2021-06-18] MEDS ORDERED: ACETAMINOPHEN 1000 MG/100 ML BAG IVPB ONE (19:00)
[2021-06-18] MEDS: MELATONIN 5 MG TABLETS PO PRN (21:13)
[2021-06-18] MEDS: CYPROHEPTADINE HCL 4 MG TABLET PO SCH (21:27)
[2021-06-18 21:58] LABS: BASO % 0.6 % (0-2.0); EOS % 3.5 % (0-4.5); HEMATOCRIT 30.6 % (35.4-49); HEMOGLOBIN 9.8 GM/dL (11.7-16.9); LYMPH % 15.8 % (8-40); MCH 28.6 pg (25.7-33.7); MEAN CELL VOLUME 89.2 fl (80-96); MEAN PLT VOLUME 7.6 fl (7.5-11.1); MONO % 9.8 % (3.8-10.2); NEUT % 70.3 % (42.8-82.8); PLATELET COUNT 250 10^3/uL (134-434); RBC 3.43 M/mm3 (4.00-5.60); RDW 16.7 % (11.9-15.9); WHITE BLOOD COUNT 7.9 K/mm3 (4.0-10.0)
[2021-06-18 22:19] LABS: BLOOD UREA NITROGEN 15.2 mg/dL (7-18); CALCIUM 8.5 mg/dL (8.5-10.1)
[2021-06-18 22:20] LABS: MAGNESIUM 2.4 mg/dL (1.8-2.4)
[2021-06-18 22:23] LABS: CREATININE 1.7 mg/dL (0.55-1.3); PHOSPHOROUS 3.3 mg/dL (2.5-4.9)
[2021-06-18 22:24] LABS: BILIRUBIN,TOTAL 0.4 mg/dL (0.2-1); TOT PROT 6.6 g/dl (6.4-8.2)
[2021-06-19] MEDS: PIPERACILLIN/TAZOB 3.375 GM 3.375 GM in DEXTROSE 5%-WATER - 50 ML IVPB SCH ×3 (01:43→17:42)
[2021-06-19] MEDS ORDERED: PIPERACILLIN/TAZOBACTAM 3.375 GM VIAL IVPB ONE ×2 (09:54→17:20)
[2021-06-19] MEDS ORDERED: DEXTROSE 5%-WATER - 50 ML IVPB ONE ×2 (09:55→17:21)
[2021-06-19] MEDS: TAMSULOSIN HCL 0.4 MG CAP PO SCH ×2 (10:00→21:11)
[2021-06-19] MEDS: OXYBUTYNIN CHLORIDE 5 MG TABLET PO SCH (10:00)
[2021-06-19] MEDS: APIXABAN 5 MG TABLET PO SCH ×2 (10:00→21:11)
[2021-06-19] MEDS: LIDOCAINE HCL 2% JELLY (30 ML/TUBE) TP SCH ×2 (10:00→21:21)
[2021-06-19] MEDS: PANTOPRAZOLE 40 MG TABLET PO SCH ×2 (10:00→11:47)
[2021-06-19] MEDS: POLYETHYLENE GLYCOL (HEALTHYLAX) 3350 17 GM PACKET PO SCH ×2 (10:00→11:47)
[2021-06-19] MEDS: LIPASE/PROTEASE/AMYLASE 36,000 UNIT CAPSULE PO SCH ×3 (10:01→17:42)
[2021-06-19] MEDS ORDERED: BETHANECHOL CHLORIDE 25 MG TABLET PO SCH (14:00)
[2021-06-19] MEDS ORDERED: SODIUM CHLORIDE 0.45% 1,000 ML IV SCH (18:15)
[2021-06-19] MEDS ORDERED: SODIUM CHLORIDE 1,000 ML IV SCH (19:00)
[2021-06-19] MEDS: SODIUM CHLORIDE 0.45% 1,000 ML IV SCH (20:02)
[2021-06-19 20:11] LABS: EPI CELLS 0 /uL (0-25.1); HYALINE CASTS 1 /uL (0-3.1); URINE APPEARANCE CLEAR; URINE BACTERIA 170 /uL (0-1359); URINE BILIRUBIN NEGATIVE (NEGATIVE); URINE COLOR YELLOW; URINE GLUCOSE (UA) NEGATIVE (NEGATIVE); URINE KETONE NEGATIVE (NEGATIVE); URINE LEUK ESTERASE 3+ (NEGATIVE); URINE NITRITE NEGATIVE (NEGATIVE); URINE PROTEIN NEGATIVE (NEGATIVE); URINE RBC 10 /uL (0-23.9); URINE WBC 243 /uL (0-25.8)
[2021-06-19] MEDS: MELATONIN 5 MG TABLETS PO PRN (21:11)
[2021-06-19] MEDS: PRAMIPEXOLE DIHYDROCHLORIDE 0.25 MG TABLET PO SCH (21:21)
[2021-06-20] MEDS: TAMSULOSIN HCL 0.4 MG CAP PO SCH ×2 (08:15→21:05)
[2021-06-20] MEDS: LIPASE/PROTEASE/AMYLASE 36,000 UNIT CAPSULE PO SCH ×3 (08:23→16:56)
[2021-06-20] MEDS: POLYETHYLENE GLYCOL (HEALTHYLAX) 3350 17 GM PACKET PO SCH (09:05)
[2021-06-20] MEDS: LIDOCAINE HCL 2% JELLY (30 ML/TUBE) TP SCH ×2 (09:06→21:03)
[2021-06-20 09:08] LABS: BASO % 0.7 % (0-2.0); EOS % 5.1 % (0-4.5); HEMATOCRIT 31.3 % (35.4-49); LYMPH % 26.2 % (8-40); MCH 28.5 pg (25.7-33.7); MCHC 31.9 g/dl (32.0-35.9); MEAN CELL VOLUME 89.4 fl (80-96); MEAN PLT VOLUME 8.1 fl (7.5-11.1); MONO % 10.5 % (3.8-10.2); NEUT % 57.5 % (42.8-82.8); PLATELET COUNT 223 10^3/uL (134-434); RDW 17.2 % (11.9-15.9); WHITE BLOOD COUNT 5.5 K/mm3 (4.0-10.0)
[2021-06-20] MEDS: PANTOPRAZOLE 40 MG TABLET PO SCH (09:26)
[2021-06-20] MEDS: APIXABAN 5 MG TABLET PO SCH ×2 (09:28→21:04)
[2021-06-20 09:33] LABS: ALBUMIN 3.1 g/dl (3.4-5.0); BLOOD UREA NITROGEN 11.8 mg/dL (7-18); CALCIUM 8.8 mg/dL (8.5-10.1)
[2021-06-20 09:36] LABS: BILIRUBIN,TOTAL 0.5 mg/dL (0.2-1); CREATININE 1.1 mg/dL (0.55-1.3); TOT PROT 6.6 g/dl (6.4-8.2); URIC ACID 3.3 mg/dL (2.6-7.2)
[2021-06-20] MEDS: SODIUM CHLORIDE 0.45% 1,000 ML IV SCH (10:32)
[2021-06-20] MEDS ORDERED: ACETAMINOPHEN 325 MG TABLET (FP) PO ONE (13:15)
[2021-06-20] MEDS: PRAMIPEXOLE DIHYDROCHLORIDE 0.25 MG TABLET PO SCH (21:05)
[2021-06-20] MEDS: MELATONIN 5 MG TABLETS PO PRN (21:05)
[2021-06-21 07:06] LABS: IGA IMMUNOGLOBULIN 247 mg/dL (61-437); IGG QN IMMUNOGLOBULIN 1076 mg/dL (603-1613); IGM QN SERUM 135 mg/dL (15-143)
[2021-06-21 08:03] LABS: BASO % 0.5 % (0-2.0); EOS % 2.9 % (0-4.5); HEMATOCRIT 30.8 % (35.4-49); HEMOGLOBIN 10.4 GM/dL (11.7-16.9); LYMPH % 19.6 % (8-40); MCH 29.8 pg (25.7-33.7); MCHC 33.8 g/dl (32.0-35.9); MEAN CELL VOLUME 88.3 fl (80-96); MEAN PLT VOLUME 7.5 fl (7.5-11.1); MONO % 10.5 % (3.8-10.2); NEUT % 66.5 % (42.8-82.8); PLATELET COUNT 203 10^3/uL (134-434); RBC 3.48 M/mm3 (4.00-5.60); RDW 17.2 % (11.9-15.9); WHITE BLOOD COUNT 6.9 K/mm3 (4.0-10.0)
[2021-06-21 08:24] LABS: CALCIUM 8.8 mg/dL (8.5-10.1)
[2021-06-21 08:25] LABS: ALBUMIN 3.3 g/dl (3.4-5.0); BLOOD UREA NITROGEN 13.6 mg/dL (7-18)
[2021-06-21 08:28] LABS: CREATININE 1.2 mg/dL (0.55-1.3)
[2021-06-21 08:29] LABS: BILIRUBIN,TOTAL 0.7 mg/dL (0.2-1); TOT PROT 6.9 g/dl (6.4-8.2)
[2021-06-21] MEDS: PANTOPRAZOLE 40 MG TABLET PO SCH (09:25)
[2021-06-21] MEDS: TAMSULOSIN HCL 0.4 MG CAP PO SCH (09:25)
[2021-06-21] MEDS: APIXABAN 5 MG TABLET PO SCH (09:25)
[2021-06-21] MEDS: POLYETHYLENE GLYCOL (HEALTHYLAX) 3350 17 GM PACKET PO SCH (09:33)
[2021-06-21] MEDS: LIPASE/PROTEASE/AMYLASE 36,000 UNIT CAPSULE PO SCH ×2 (09:33→11:30)
[2021-06-21] MEDS: LIDOCAINE HCL 2% JELLY (30 ML/TUBE) TP SCH (09:34)
[2021-06-21 13:41] VITALS: BP 99/51; PULSE 62; TEMP 98.1
[2021-06-23 17:09] LABS: FREE KAPPA,SERUM 27.3 mg/L (3.3-19.4)
== END 2021-06-21 15:37 | disposition home or self-care (01) | DRG 690 ==
LOC: JER 13:14 → JERBED 17:46 → J5S 21:17
PROVIDERS: ADMIT Internal Medicine; ATTEND Internal Medicine
DX: N39.0 Urinary tract infection, site not specified (principal); N17.9 Acute kidney failure, unspecified; B96.5 Pseudomonas (aeruginosa) (mallei) (pseudomallei) as the cause of diseases classified elsewhere; I48.91 Unspecified atrial fibrillation; N40.0 Benign prostatic hyperplasia without lower urinary tract symptoms; K58.9 Irritable bowel syndrome, unspecified; D64.9 Anemia, unspecified; I10 Essential (primary) hypertension; R19.00 Intra-abdominal and pelvic swelling, mass and lump, unspecified site; R31.9 Hematuria, unspecified; G20 Parkinson's disease; G25.81 Restless legs syndrome; K59.00 Constipation, unspecified; R63.4 Abnormal weight loss; Z68.21 Body mass index [BMI] 21.0-21.9, adult
CPT/HCPCS: 36415; 70450-TC; 71046-TC-FY; 71250-TC; 74176-TC; 76775-TC; 80053; 81003; 82272; 82378; 82436; 82550; 82570; 82607; 82728; 82746; 82784; 83540; 83550; 83615; 83735; 83883; 84100; 84133; 84153; 84155; 84165; 84300; 84439; 84443; 84550; 85025; 85027; 85610; 85651; 85730; 86038; 86140; 86301; 86334; 86431; 86780; 87040; 87086; 87186; 93005; 93010; 93970-TC; 97116-GP; 97161-GP; 99285-25; C9803; J1439; J1756; Q9967; U0003; U0005

== ENCOUNTER 2022-02-12 13:04 | Inpatient (IN) | payer OTHER ==
[2022-02-12 14:27] VITALS: TEMP 98.1; BMI 21.7
[2022-02-12 14:48] LABS: BASO % 0.8 % (0-2.0); EOS % 1.1 % (0-4.5); HEMATOCRIT 38.7 % (35.4-49); HEMOGLOBIN 12.5 GM/dL (11.7-16.9); LYMPH % 25.5 % (8-40); MCH 29.2 pg (25.7-33.7); MCHC 32.2 g/dl (32.0-35.9); MEAN CELL VOLUME 90.7 fl (80-96); MEAN PLT VOLUME 7.9 fl (7.5-11.1); MONO % 13.1 % (3.8-10.2); NEUT % 59.5 % (42.8-82.8); PLATELET COUNT 199 10^3/uL (134-434); RBC 4.27 M/mm3 (4.00-5.60); RDW 14.6 % (11.9-15.9); WHITE BLOOD COUNT 5.3 K/mm3 (4.0-10.0)
[2022-02-12 14:54] LABS: INR 1.52 (0.83-1.09); PROTHROMBIN TIME (PATIENT) 17.5 SEC (9.7-13.0)
[2022-02-12 14:57] LABS: ACTIVATED PTT 40.3 SECONDS (25.2-36.5)
[2022-02-12] MEDS ORDERED: FUROSEMIDE 40 MG/4 ML INJECTABLE VIAL IVPUSH ONE (15:08)
[2022-02-12 15:14] LABS: ALBUMIN 3.6 g/dl (3.4-5.0); BLOOD UREA NITROGEN 13.7 mg/dL (7-18); CALCIUM 8.4 mg/dL (8.5-10.1); MAGNESIUM 2.2 mg/dL (1.8-2.4)
[2022-02-12 15:18] LABS: PHOSPHOROUS 2.9 mg/dL (2.5-4.9)
[2022-02-12] MEDS ORDERED: FUROSEMIDE 40 MG/4 ML INJECTABLE VIAL ONE (15:19)
[2022-02-12 15:20] LABS: TOT PROT 7.1 g/dl (6.4-8.2)
[2022-02-12 15:23] LABS: N-TERMINAL BNP 1002.7 pg/ml (5-450)
[2022-02-12] MEDS ORDERED: ENOXAPARIN NA (PORCINE) 40 MG/0.4 ML DISP.SYRIN SQ SCH (18:00)
[2022-02-12 19:03] VITALS: BP 142/68; PULSE 75; RESP 18
[2022-02-12] MEDS ORDERED: APIXABAN 5 MG TABLET PO SCH (22:00)
[2022-02-12] MEDS ORDERED: APIXABAN 5 MG TABLET ONE (22:51)
[2022-02-13] MEDS ORDERED: FUROSEMIDE 40 MG/4 ML INJECTABLE VIAL IVPUSH SCH (06:00)
[2022-02-13] MEDS ORDERED: TAMSULOSIN HCL 0.4 MG CAP PO SCH (08:30)
[2022-02-13] MEDS ORDERED: FINASTERIDE 5 MG TABLET (FP) PO SCH (10:00)
== END 2022-02-13 02:41 | disposition left against medical advice (07) | DRG 291 ==
LOC: JER 13:04 → JERBED 14:45
PROVIDERS: ADMIT Internal Medicine; ATTEND Internal Medicine
DX: I11.0 Hypertensive heart disease with heart failure (principal); I50.33 Acute on chronic diastolic (congestive) heart failure; I48.21 Permanent atrial fibrillation; D64.9 Anemia, unspecified
CPT/HCPCS: 0241U-QW; 36415; 71045-TC-FY; 80053; 83735; 83880; 84100; 84484; 85025; 85610; 85730; 93005; 93010; 99285-25

== ENCOUNTER 2022-07-14 13:03 | Inpatient (IN) | payer OTHER ==
[2022-07-14 13:38] VITALS: BMI 21.7
[2022-07-14 15:31] LABS: BASO % 0.7 % (0-2.0); EOS % 3.3 % (0-4.5); HEMATOCRIT 25.9 % (35.4-49); HEMOGLOBIN 8.5 GM/dL (11.7-16.9); LYMPH % 14.4 % (8-40); MCH 28.7 pg (25.7-33.7); MCHC 32.7 g/dl (32.0-35.9); MEAN CELL VOLUME 87.7 fl (80-96); MONO % 10.8 % (3.8-10.2); NEUT % 70.8 % (42.8-82.8); PLATELET COUNT 240 10^3/uL (134-434); RBC 2.96 M/mm3 (4.00-5.60); RDW 16.4 % (11.9-15.9); WHITE BLOOD COUNT 5.7 K/mm3 (4.0-10.0)
[2022-07-14 15:38] LABS: INR 2.11 (0.83-1.09); PROTHROMBIN TIME (PATIENT) 24.3 SEC (9.7-13.0)
[2022-07-14 15:41] LABS: ACTIVATED PTT 40.3 SECONDS (25.2-36.5)
[2022-07-14 15:52] LABS: CALCIUM 8.3 mg/dL (8.5-10.1)
[2022-07-14 15:53] LABS: ALBUMIN 3.1 g/dl (3.4-5.0); BLOOD UREA NITROGEN 11.4 mg/dL (7-18)
[2022-07-14 15:57] LABS: BILIRUBIN,TOTAL 1.5 mg/dL (0.2-1)
[2022-07-14 15:58] LABS: TOT PROT 6.7 g/dl (6.4-8.2)
[2022-07-14 16:01] LABS: N-TERMINAL BNP 2023.5 pg/ml (5-450)
[2022-07-14] MEDS ORDERED: FUROSEMIDE 40 MG/4 ML INJECTABLE VIAL IVPUSH ONE (16:21)
[2022-07-14] MEDS ORDERED: POTASSIUM CHLORIDE ORAL LIQUID 20 MEQ/15 ML PO ONE (16:22)
[2022-07-14] MEDS ORDERED: FUROSEMIDE 40 MG/4 ML INJECTABLE VIAL ONE (17:08)
[2022-07-14] MEDS ORDERED: POTASSIUM CHLORIDE ORAL LIQUID 20 MEQ/15 ML ONE (17:08)
[2022-07-14 21:31] LABS: BLOOD UREA NITROGEN 8.9 mg/dL (7-18); CALCIUM 8.1 mg/dL (8.5-10.1)
[2022-07-14 21:32] LABS: MAGNESIUM 1.8 mg/dL (1.8-2.4)
[2022-07-14 21:35] LABS: CREATININE 1.1 mg/dL (0.55-1.3); PHOSPHOROUS 2.8 mg/dL (2.5-4.9)
[2022-07-15 01:00] VITALS: TEMP 99.8
[2022-07-15 02:31] VITALS: BP 136/64; PULSE 70; RESP 22
[2022-07-15] MEDS ORDERED: TAMSULOSIN HCL 0.4 MG CAP PO SCH (08:30)
[2022-07-15] MEDS ORDERED: APIXABAN 5 MG TABLET PO SCH (10:00)
[2022-07-15] MEDS ORDERED: FINASTERIDE 5 MG TABLET (FP) PO SCH (10:00)
[2022-07-15] MEDS ORDERED: FUROSEMIDE 40 MG/4 ML INJECTABLE VIAL IVPUSH SCH (10:00)
== END 2022-07-15 02:30 | disposition short-term general hospital (02) | DRG 641 ==
LOC: JER 13:03 → JERBED 07-15 00:02 → OBSVTOIN 07-15 01:17
PROVIDERS: ADMIT Internal Medicine; ATTEND Internal Medicine
DX: E87.70 Fluid overload, unspecified (principal); I11.0 Hypertensive heart disease with heart failure; I50.9 Heart failure, unspecified; I48.91 Unspecified atrial fibrillation; G20 Parkinson's disease; D64.9 Anemia, unspecified; N40.0 Benign prostatic hyperplasia without lower urinary tract symptoms; K58.9 Irritable bowel syndrome, unspecified; E78.00 Pure hypercholesterolemia, unspecified; Z95.2 Presence of prosthetic heart valve; Z85.46 Personal history of malignant neoplasm of prostate
CPT/HCPCS: 0241U-QW; 36415; 71045-TC-FY; 80048; 80053; 83735; 83880; 84100; 84484; 85025; 85610; 85730; 87040; 93005; 93010; 93306-TC; 99285-25; G0378

== ENCOUNTER 2022-10-04 14:32 | Emergency (ER) | payer OTHER ==
[2022-10-04 14:44] VITALS: BP 156/57; PULSE 66; RESP 20; TEMP 98.6; BMI 25.7
== END 2022-10-04 16:24 | disposition home or self-care (01) ==
LOC: FER 14:32
DX: R60.0 Localized edema (principal); S80.01XA Contusion of right knee, initial encounter; I83.811 Varicose veins of right lower extremity with pain; X58.XXXA Exposure to other specified factors, initial encounter
CPT/HCPCS: 93971-TC; 99284-25